=== PATIENT | female | born 1930 | race Caucasian/White ===

== ENCOUNTER 2018-01-30 16:05 | Emergency (ER) | payer OTHER ==
[~2018-01-30] VITALS: Ht 165.1 cm; Wt 47.6 kg
[~2018-01-30 16:05] MED LIST: ASA81 MG; COZAAR100 MG PO; SYNTHROID112 MCG; XANAX1 MG
== END 2018-01-30 19:43 | disposition home or self-care (01) ==
LOC: ER 16:05
DX: L27.1 Localized skin eruption due to drugs and medicaments taken internally (principal); L29.8 Other pruritus; T50.995S Adverse effect of other drugs, medicaments and biological substances, sequela